=== PATIENT | female | born 1970 | race African-American/Black ===

== ENCOUNTER 2018-07-29 05:25 | Emergency (ER) | payer OTHER ==
[~2018-07-29] VITALS: Ht 172.7 cm; Wt 72.6 kg
[2018-07-29] MEDS ORDERED: Zyprexa (05:36)
--- NOTE | 2018-07-29 05:45 | NUR ---
Pt ambulated in ER with stable gait with the c/o cough. Upon assessment, respirations are even and unlabored. SpO2 WNL. Patient denies CP and SOB. Safe environment implemented.
--- NOTE | 2018-07-29 05:53 | NUR ---
Dr. Go at bedside for MSE
[2018-07-29 06:40] LABS: BASOPHILS # (AUTO) 0.1 K/uL (0.0-8.0); BASOPHILS % (AUTO) 0.8 % (0.0-2.0); EOSINOPHILS % (AUTO) 0.6 % (0.0-7.0); HEMATOCRIT 43.7 % (31.2-41.9); HEMOGLOBIN 15.1 g/dL (10.9-14.3); LYMPHOCYTES # (AUTO) 1.5 K/uL (20.0-40.0); LYMPHOCYTES % (AUTO) 21.2 % (20.5-51.5); MEAN CORPUSCULAR HEMOGLOBIN 30.6 uug (24.7-32.8); MEAN CORPUSCULAR HGB CONC 35 g/dL (32.3-35.6); MEAN CORPUSCULAR VOLUME 88.7 fL (75.5-95.3); MONOCYTES # (AUTO) 0.7 K/uL (2.0-10.0); MONOCYTES % (AUTO) 10.3 % (0.0-11.0); NEUTROPHILS # (AUTO) 4.6 K/uL (1.8-8.9); NEUTROPHILS % (AUTO) 67.1 % (38.5-71.5); PLATELET COUNT (AUTO) 326 K/uL (179-408); RED BLOOD CELL COUNT(AUTO) 4.92 MIL/uL (3.63-4.92); WHITE BLOOD COUNT (AUTO) 6.8 K/uL (3.8-11.8)
[2018-07-29 06:59] LABS: ETHANOL < 3 MG/DL (0-0); THYROID STIMULATING HORMONE 2.288 mIU/mL (0.358-3.740)
--- NOTE | 2018-07-29 07:00 | NUR ---
recieved pt i nbed, awake, talking to self.
[2018-07-29 07:02] LABS: ALANINE AMINOTRANSFERASE 42 U/L (14-59); ALKALINE PHOSPHATASE 103 U/L (50-136); ASPARTATE AMINOTRANSFERASE 59 U/L (15-37); BILIRUBIN,DIRECT 0.1 mg/dL (0.0-0.2); BILIRUBIN,TOTAL 0.4 mg/dL (0.2-1.0); CARBON DIOXIDE 27 mmol/L (21-32); CHLORIDE 98 mmol/L (98-107); CREATININE 0.8 mg/dL (0.6-1.3); POTASSIUM 3.9 mmol/L (3.5-5.1); TOTAL PROTEIN, SERUM 8.6 g/dL (6.4-8.2); UREA NITROGEN, BLOOD 18 mg/dL (7-18)
[2018-07-29 07:22] LABS: GLUCOSE 98 mg/dL (74-106)
--- NOTE | 2018-07-29 07:38 | NUR ---
pt fifnished the bftray with good apetite.
--- NOTE | 2018-07-29 07:41 | NUR ---
pt medically cleared, acacia condon for psych eval.
[2018-07-29 07:53] LABS: *BILIRUBIN,URIN NEGATIVE (NEGATIVE); *BLOOD, URINE Trace-lysed (NEGATIVE); *CLARITY,URINE CLOUDY (CLEAR); *COLOR,URINE YELLOW (YELLOW); *KETONES,URINE 1+ (NEGATIVE); *PROTEIN,URINE 1+ (NEGATIVE); *UROBILINOGEN,URINE 0.2 E.U./dl (NORMAL); LEUKOCYTE ESTERASE ,URINE 2+ (NEGATIVE); NITRITE, URINE NEGATIVE (NEGATIVE); UGLUCOSE NEGATIVE (NEGATIVE)
[2018-07-29 07:55] LABS: ACETAMINOPHEN < 2.0 ug/mL (10-30)
[2018-07-29 08:03] LABS: WBC,URINE TNTC /HPF (0-3)
[2018-07-29 08:05] LABS: BACTERIA,URINE MODERATE /HPF (NONE SEEN); MUCUS,URINE FEW /LPF (0-FEW); SQUAMOUS EPITHELIAL CELL,UR MODERATE /HPF (NONE SEEN)
[2018-07-29 08:06] LABS: *AMPHETAMINE, URINE POSITIVE (NEGATIVE); *BARBITURATE, URINE NEGATIVE (NEGATIVE); *CANNABINOID, URINE NEGATIVE (NEGATIVE); *COCCAINE, URINE NEGATIVE (NEGATIVE); *OPIATE, URINE NEGATIVE (NEGATIVE); *PHENCYCLIDINE SCREEN,URINE NEGATIVE (NEGATIVE)
--- NOTE | 2018-07-29 08:25 | NUR ---
pt coming out of bed talking loud to internal stimuli. roaming around, called code hidalgo.
[2018-07-29] MEDS ORDERED: diphenhydrAMINE 50 MG/1 ML VIAL ONE (08:27)
[2018-07-29] MEDS ORDERED: OLANZAPINE 10 MG VIAL IM ONE ×2 (08:28→08:29)
[2018-07-29] MEDS ORDERED: diphenhydrAMINE 50 MG/1 ML VIAL IM ONE (08:29)
--- NOTE | 2018-07-29 08:32 | NUR ---
pt in room, security at bedside. code hidalgo cleared
--- NOTE | 2018-07-29 09:07 | NUR ---
magnus condon at bedside for psycheval.
--- NOTE | 2018-07-29 09:30 | NUR ---
pt does not meet the criteria to be on hold. ca
--- NOTE | 2018-07-29 10:10 | NUR ---
jesus social insurance specialist at bedside. pt reluctant to talk to social insurance specialist t this time.
--- NOTE | 2018-07-29 12:30 | NUR ---
hospital lunch tray provided for pt. pt is eating with good apetite.
--- NOTE | 2018-07-29 14:30 | NUR ---
pt axox4 at this time. pt is calm and cooperative.
--- NOTE | 2018-07-29 14:39 | NUR ---
Patient discharged to home in stable conditon. Written and verbal after care instructions given. Patient verbalizes understanding of instructions.pt walks in steady gait, no sign of distress.new clothing and food provided. pt refuses to go to the detention at this time. pt said will wait in the waiting room to talk to social media strategist.miah, social media strategist aware, will come and talk to pt. Addendum: 07/29/18 at 1510 by DINO pt was d/timur per hospital guidelines for d/cing homeless pt.
[2018-07-29 15:05] VITALS: BP 120/87
--- NOTE | 2018-07-29 15:11 | NUR ---
pt decided to leave. pt does not want to wait for hospital social worker to talk.
--- NOTE | 2018-07-29 15:14 | NUR ---
Patient given written and verbal discharge instructions. Patient verbalizes understanding of instructions. Patient is ambulatory with steady gait. Refuses offer of nursing home placement. Patient given list of available shelters in surrounding area, the list of pharmacies and other resources available in the homeless d/c package.
--- NOTE | 2018-07-29 16:31 | NUR ---
10:10am: ELIZABETH, and SW agribusiness internship Marisol, met with the patient. Patient was in her assigned ED bed, but was difficult to arouse. Patient would open her eyes when her name was called, but would not respond to any other question. Patient was sleepy/drowsy. SW attempted to arouse patient x 4, but was unsuccessful. WINSTON Castillo informed. WINSTON Castillo provided with the following homeless resources and asked to provide to patient upon discharge: 1) List of homeless [place] shelters, with pick-up locations and times. ELIZABETH instructed Anna to obtain a taxi voucher from switch house operator in order to transport patient to the longterm pick-up location of her choosing. 2) [facility] Homeless Resource Directory's list of food pantries/[place], locations and days/time of hot meals and showers 3) List of Mental Health Services for homeless patients 4) List of health care clinics for homeless patients 5) List of pharmacies throughout the [facility] Above resource package was prepared for WINSTON Castillo to provide patient with upon discharge, along with instructions to provide patient with any relevant medication prescriptions, if needed. Anna stated she would follow-up with patient upon discharge. No further interventions needed at this time.
== END 2018-07-29 15:17 | disposition home or self-care (01) ==
LOC: ER 05:28 → EDSEX 05:28 → ER 15:17
DX: J20.8 Acute bronchitis due to other specified organisms (principal); B97.89 Other viral agents as the cause of diseases classified elsewhere; F20.9 Schizophrenia, unspecified; F32.9 Major depressive disorder, single episode, unspecified; Z88.8 Allergy status to other drugs, medicaments and biological substances; Z59.0 Homelessness
CPT/HCPCS: 36415; 70450; 71045; 80048; 80076; 80307; 81001; 82140; 83605; 84443; 84484; 85025; 85730; 87040 ×2; 87086; 93005; 96372 ×2; 99284; G0480 ×2; G0481; J1200; 70030-TC; A4663; J2358